=== PATIENT | male | born 1950 | race Caucasian/White ===

== ENCOUNTER 2020-11-12 06:16 | Inpatient (IN) ==
[~2020-11-12 06:16] MED LIST: Ringers Solution, Lactated 1,000 ML IVC SCH
[2020-11-12] MEDS ORDERED: Clindamycin 900 MG/50 ML 900 MG/50 ML IV.SOLN IVPB ONE (06:45)
[2020-11-12] MEDS ORDERED: Lidocaine HCL 4 ML Topical Solution (Laryng-O-Jet Kit Sterile Pak) TP ONE (06:51)
[2020-11-12] MEDS ORDERED: *HR* Vasopressin 20 UNIT/ML VIAL ONE (06:53)
[2020-11-12] MEDS ORDERED: Lidocaine Jelly 6ml 1 APPL/6 ML JEL.PF.APP ONE ×2 (06:53→07:42)
[2020-11-12] MEDS ORDERED: *HR* Propofol 200 MG/20 ML VIAL IVP ONE (06:56)
[2020-11-12] MEDS ORDERED: Lidocaine -MPF 2% 2 ML VIAL ONE (06:57)
[2020-11-12] MEDS ORDERED: *HR* Rocuronium Bromide 50 MG/5 ML VIAL ONE (06:57)
[2020-11-12] MEDS ORDERED: *HR* FentaNYL (PF) 100 MCG/2 ML VIAL ONE (06:57)
[2020-11-12] MEDS ORDERED: *HR* HYDROcodone/Acet 5/325 mg TABLET PO PRN (08:00)
[2020-11-12] MEDS ORDERED: Ondansetron 4 MG/2 ML VIAL IVP PRN ×2 (08:00→10:02)
[2020-11-12] MEDS ORDERED: Acetaminophen IV 1,000 MG/100 ML BAG IVPB PRN (08:00)
[2020-11-12] MEDS ORDERED: *HR* HYDROmorphone PF 0.5 MG/0.5 ML SYRINGE IVP PRN (08:00)
[2020-11-12] MEDS ORDERED: *HR* Labetalol 20 MG/4 ML SYRINGE IVP ONE (08:37)
[2020-11-12] MEDS ORDERED: Sugammadex Sodium 200 MG/2 ML VIAL IV ONE (08:38)
[2020-11-12] MEDS ORDERED: Ketorolac 30 MG/ML VIAL ONE (08:45)
[2020-11-12] MEDS ORDERED: *HR* HYDROMORPHONE 2 MG/ML VIAL ONE (08:47)
[2020-11-12] MEDS ORDERED: Naloxone 0.4 MG/ML INJ IVP PRN (10:02)
[2020-11-12] MEDS: 0.9 % Sodium Chloride 1,000 ML IVC SCH ×2 (10:26→23:16)
[2020-11-12] MEDS: Famotidine 20 MG TABLET PO SCH ×2 (10:26→20:51)
[2020-11-12] MEDS: *HR* HYDROcodone/Acet 5/325 mg TABLET PO PRN ×3 (10:26→20:51)
[2020-11-12] MEDS: Gabapentin 300 MG CAPSULE PO SCH ×3 (10:26→20:51)
[2020-11-12] MEDS: Sennosides/Docusate Sodium TABLET PO SCH ×2 (10:52→20:51)
[2020-11-12] MEDS: Ipratropium/Albuterol Neb 3 ML IH SCH ×3 (11:25→19:55)
[2020-11-12] MEDS: Ketorolac 15 MG/ML VIAL IVP SCH ×3 (11:52→23:15)
[2020-11-12] MEDS: *HR* Heparin 5,000 UNIT/ML VIAL SQ SCH ×2 (14:34→20:51)
[2020-11-12] MEDS: hydrALAZINE 10 MG TABLET PO PRN (17:12)
[2020-11-12] MEDS: traZODone 50 MG TABLET PO PRN (20:51)
[2020-11-13] MEDS: Ipratropium/Albuterol Neb 3 ML IH SCH ×6 (00:45→20:15)
[2020-11-13 00:52] LABS: Hemoglobin 12.9 g/dL (12.9-16.9); Mean Corpuscular HGB Conc 33.9 g/dL (31.6-35.5); Mean Corpuscular Volume 97.2 fL (83.0-100.0); Mean Platelet Volume 9.4 fL (9.4-12.4); Platelet Count 114 K/mcL (140-400); Red Blood Count 3.91 M/mcL (4.19-5.50); Red Cell Distribution Width 13.9 % (11.5-14.5); White Blood Count 7.3 K/mcL (4.3-11.1)
[2020-11-13 01:11] LABS: % Iron Saturation 14 % (20-55); BUN/Creatinine Ratio 12 (6-26); Blood Urea Nitrogen 12 mg/dL (8-23); Calcium 7.6 mg/dL (8.6-10.3); Carbon Dioxide 25 mEq/L (23-29); Chloride 100 mEq/L (98-107); Glucose 160 mg/dL (70-105); Iron 60 mcg/dL (65-175); Magnesium 0.8 mg/dL (1.6-2.6); Osmolality,Calculated 287 (280-300); Potassium 3.5 mEq/L (3.5-5.1); Sodium 137 mEq/L (136-145); Transferrin 299 mg/dL (203-362); eGFR For African Americans > 60 (> 60); eGFR For Non-African Americans > 60 (> 60)
[2020-11-13] MEDS: Ketorolac 15 MG/ML VIAL IVP SCH ×3 (05:10→17:28)
[2020-11-13] MEDS: *HR* Heparin 5,000 UNIT/ML VIAL SQ SCH ×3 (05:10→20:21)
[2020-11-13] MEDS: Aspirin Enteric Coated 81 MG Tablet PO SCH (07:51)
[2020-11-13] MEDS: Famotidine 20 MG TABLET PO SCH ×2 (07:51→20:21)
[2020-11-13] MEDS: Sennosides/Docusate Sodium TABLET PO SCH ×2 (07:52→20:21)
[2020-11-13] MEDS: DilTIAZem CD (24hr) 240 MG CAP.ER.24H PO SCH (07:52)
[2020-11-13] MEDS: allopurinoL 300 MG TABLET PO SCH (07:52)
[2020-11-13] MEDS: Gabapentin 300 MG CAPSULE PO SCH ×3 (07:52→20:21)
[2020-11-13] MEDS: *HR* HYDROcodone/Acet 5/325 mg TABLET PO PRN ×3 (07:57→17:28)
[2020-11-13] MEDS: hydrALAZINE 10 MG TABLET PO PRN (07:57)
[2020-11-13] MEDS: amLODIPine 5 MG TABLET PO SCH (09:23)
[2020-11-13] MEDS: Metoprolol XL (24 HR) Succ 25 MG TAB.ER.24H PO SCH (09:27)
[2020-11-13] MEDS: Patient Taking Own Medication 1 EACH PO SCH (09:28)
[2020-11-14] MEDS: Ipratropium/Albuterol Neb 3 ML IH SCH ×7 (00:14→23:55)
[2020-11-14 02:06] LABS: BUN/Creatinine Ratio 19 (6-26); Blood Urea Nitrogen 23 mg/dL (8-23); Calcium 7.6 mg/dL (8.6-10.3); Carbon Dioxide 26 mEq/L (23-29); Chloride 100 mEq/L (98-107); Glucose 147 mg/dL (70-105); Magnesium 2.3 mg/dL (1.6-2.6); Osmolality,Calculated 284 (280-300); Potassium 3.5 mEq/L (3.5-5.1); Sodium 134 mEq/L (136-145); eGFR For African Americans > 60 (> 60); eGFR For Non-African Americans > 60 (> 60)
[2020-11-14] MEDS: Ketorolac 15 MG/ML VIAL IVP SCH ×4 (06:53→16:51)
[2020-11-14] MEDS: *HR* HYDROcodone/Acet 5/325 mg TABLET PO PRN ×2 (06:54→21:29)
[2020-11-14] MEDS: *HR* Heparin 5,000 UNIT/ML VIAL SQ SCH ×3 (06:55→21:30)
[2020-11-14] MEDS: amLODIPine 5 MG TABLET PO SCH (09:17)
[2020-11-14] MEDS: allopurinoL 300 MG TABLET PO SCH (09:17)
[2020-11-14] MEDS: Sennosides/Docusate Sodium TABLET PO SCH ×2 (09:17→21:30)
[2020-11-14] MEDS: Famotidine 20 MG TABLET PO SCH ×2 (09:18→21:30)
[2020-11-14] MEDS: Gabapentin 300 MG CAPSULE PO SCH ×3 (09:18→21:30)
[2020-11-14] MEDS: Metoprolol XL (24 HR) Succ 25 MG TAB.ER.24H PO SCH (09:18)
[2020-11-14] MEDS: Aspirin Enteric Coated 81 MG Tablet PO SCH (09:18)
[2020-11-14] MEDS: DilTIAZem CD (24hr) 240 MG CAP.ER.24H PO SCH (09:19)
[2020-11-14] MEDS: Patient Taking Own Medication 1 EACH PO SCH (09:19)
[2020-11-14] MEDS: hydrALAZINE 10 MG TABLET PO PRN (09:21)
[2020-11-14] MEDS: traZODone 50 MG TABLET PO PRN (21:30)
[2020-11-15] MEDS: Ketorolac 15 MG/ML VIAL IVP SCH ×5 (00:22→23:14)
[2020-11-15] MEDS: Ipratropium/Albuterol Neb 3 ML IH SCH ×5 (04:25→20:02)
[2020-11-15] MEDS: *HR* Heparin 5,000 UNIT/ML VIAL SQ SCH ×3 (05:09→21:10)
[2020-11-15] MEDS: hydrALAZINE 10 MG TABLET PO PRN ×2 (05:09→23:15)
[2020-11-15] MEDS: allopurinoL 300 MG TABLET PO SCH (08:15)
[2020-11-15] MEDS: *HR* HYDROcodone/Acet 5/325 mg TABLET PO PRN ×2 (08:15→23:15)
[2020-11-15] MEDS: Gabapentin 300 MG CAPSULE PO SCH ×3 (08:15→20:30)
[2020-11-15] MEDS: Aspirin Enteric Coated 81 MG Tablet PO SCH (08:16)
[2020-11-15] MEDS: DilTIAZem CD (24hr) 240 MG CAP.ER.24H PO SCH (08:16)
[2020-11-15] MEDS: Metoprolol XL (24 HR) Succ 25 MG TAB.ER.24H PO SCH (08:16)
[2020-11-15] MEDS: amLODIPine 5 MG TABLET PO SCH (08:16)
[2020-11-15] MEDS: Famotidine 20 MG TABLET PO SCH ×2 (08:17→20:30)
[2020-11-15] MEDS: Sennosides/Docusate Sodium TABLET PO SCH ×2 (08:21→20:29)
[2020-11-15] MEDS ORDERED: Metoprolol XL (24 HR) Succ 25 MG TAB.ER.24H PO ONE ×2 (09:45)
[2020-11-15] MEDS: Patient Taking Own Medication 1 EACH PO SCH (12:00)
[2020-11-15] MEDS ORDERED: carvediloL 6.25 MG TABLET PO SCH (17:00)
[2020-11-15] MEDS: traZODone 50 MG TABLET PO PRN (20:31)
[2020-11-16] MEDS: Ipratropium/Albuterol Neb 3 ML IH SCH ×7 (00:09→23:18)
[2020-11-16] MEDS: Ketorolac 15 MG/ML VIAL IVP SCH ×4 (05:22→23:04)
[2020-11-16] MEDS: *HR* Heparin 5,000 UNIT/ML VIAL SQ SCH ×3 (05:22→21:07)
[2020-11-16] MEDS ORDERED: Metoprolol XL (24 HR) Succ 25 MG TAB.ER.24H PO SCH (09:00)
[2020-11-16] MEDS: Aspirin Enteric Coated 81 MG Tablet PO SCH (09:24)
[2020-11-16] MEDS: amLODIPine 5 MG TABLET PO SCH (09:24)
[2020-11-16] MEDS: Gabapentin 300 MG CAPSULE PO SCH ×3 (09:24→21:07)
[2020-11-16] MEDS: DilTIAZem CD (24hr) 240 MG CAP.ER.24H PO SCH (09:24)
[2020-11-16] MEDS: Famotidine 20 MG TABLET PO SCH ×2 (09:24→21:07)
[2020-11-16] MEDS: allopurinoL 300 MG TABLET PO SCH (09:25)
[2020-11-16] MEDS: Sennosides/Docusate Sodium TABLET PO SCH ×2 (09:25→21:07)
[2020-11-16] MEDS ORDERED: Furosemide 20 MG TABLET PO ONE (16:07)
[2020-11-16] MEDS: traZODone 50 MG TABLET PO PRN (21:07)
[2020-11-16] MEDS: *HR* HYDROcodone/Acet 5/325 mg TABLET PO PRN (23:04)
[2020-11-16] MEDS: hydrALAZINE 10 MG TABLET PO PRN (23:04)
[2020-11-17 01:38] LABS: Hematocrit 39.1 % (37.5-50.1); Hemoglobin 13.3 g/dL (12.9-16.9); Mean Corpuscular Hemoglobin 32.8 pg (28.0-33.3); Mean Corpuscular Volume 96.5 fL (83.0-100.0); Mean Platelet Volume 9.6 fL (9.4-12.4); Platelet Count 154 K/mcL (140-400); Red Blood Count 4.05 M/mcL (4.19-5.50); Red Cell Distribution Width 13.6 % (11.5-14.5); White Blood Count 8.3 K/mcL (4.3-11.1)
[2020-11-17 02:01] LABS: BUN/Creatinine Ratio 16 (6-26); Blood Urea Nitrogen 16 mg/dL (8-23); Calcium 9.7 mg/dL (8.6-10.3); Carbon Dioxide 25 mEq/L (23-29); Chloride 96 mEq/L (98-107); Glucose 141 mg/dL (70-105); Magnesium 2.1 mg/dL (1.6-2.6); Osmolality,Calculated 282 (280-300); Potassium 3.8 mEq/L (3.5-5.1); Sodium 134 mEq/L (136-145); eGFR For African Americans > 60 (> 60); eGFR For Non-African Americans > 60 (> 60)
[2020-11-17] MEDS: Ipratropium/Albuterol Neb 3 ML IH SCH ×3 (03:51→11:29)
[2020-11-17] MEDS: *HR* Heparin 5,000 UNIT/ML VIAL SQ SCH (05:01)
[2020-11-17] MEDS: Ketorolac 15 MG/ML VIAL IVP SCH (05:01)
[2020-11-17] MEDS ORDERED: Metoprolol XL (24 HR) Succ 50 MG TAB.ER.24H PO SCH ×2 (09:00)
[2020-11-17] MEDS: Sennosides/Docusate Sodium TABLET PO SCH (09:01)
[2020-11-17] MEDS: DilTIAZem CD (24hr) 240 MG CAP.ER.24H PO SCH (09:01)
[2020-11-17] MEDS: Gabapentin 300 MG CAPSULE PO SCH (09:01)
[2020-11-17] MEDS: Famotidine 20 MG TABLET PO SCH (09:01)
[2020-11-17] MEDS: amLODIPine 5 MG TABLET PO SCH (09:02)
[2020-11-17] MEDS: allopurinoL 300 MG TABLET PO SCH (09:02)
[2020-11-17] MEDS: Aspirin Enteric Coated 81 MG Tablet PO SCH (09:02)
[2020-11-17 10:14] VITALS: BP 172/109
[2020-11-17] MEDS: hydrALAZINE 10 MG TABLET PO PRN (10:52)
== END 2020-11-17 15:12 | disposition home or self-care (01) | DRG 163 ==
LOC: SAMDAY 06:16 → 2NNU 09:53
PROVIDERS: ADMIT Thoracic Surgery (Cardiothoracic Vascular Surgery); ATTEND Thoracic Surgery (Cardiothoracic Vascular Surgery)

== ENCOUNTER 2021-02-27 13:05 | Inpatient (IN) ==
[2021-02-27] MEDS ORDERED: Isovue-370 500 ML BOTTLE IVP ONE (13:28)
[2021-02-27 13:40] LABS: Hematocrit 38.8 % (37.5-50.1); Hemoglobin 13.3 g/dL (12.9-16.9); Mean Corpuscular HGB Conc 34.3 g/dL (31.6-35.5); Mean Corpuscular Hemoglobin 31.6 pg (28.0-33.3); Mean Corpuscular Volume 92.2 fL (83.0-100.0); Mean Platelet Volume 9.7 fL (9.4-12.4); Platelet Count 191 K/mcL (140-400); Red Blood Count 4.21 M/mcL (4.19-5.50); Red Cell Distribution Width 13.4 % (11.5-14.5); White Blood Count 7.5 K/mcL (4.3-11.1)
[2021-02-27 13:46] LABS: INR 1.3
[2021-02-27 13:49] LABS: Activated Partial Thrombo Time 31.7 Seconds (26.0-36.0)
[2021-02-27 14:08] LABS: Alanine Aminotransferase 19 Units/L (7-52); Albumin 4.2 g/dL (3.5-5.7); Albumin/Globulin Ratio 1.3 (1.1-2.2); Alkaline Phosphatase 133 Units/L (34-104); Aspartate Amino Transferase 20 Units/L (13-39); BUN/Creatinine Ratio 11 (6-26); Bilirubin,Direct 0.1 mg/dL (0.0-0.2); Bilirubin,Indirect 0.5 mg/dL (0.0-1.0); Bilirubin,Total 0.6 mg/dL (0.3-1.0); Blood Urea Nitrogen 14 mg/dL (8-23); Calcium 9.7 mg/dL (8.6-10.3); Carbon Dioxide 25 mEq/L (23-29); Chloride 102 mEq/L (98-107); Ethanol < 10 mg/dL (Less than 10); Globulin 3.3 g/dL (2.4-3.5); Glucose 153 mg/dL (70-105); Osmolality,Calculated 290 (280-300); Potassium 3.4 mEq/L (3.5-5.1); Sodium 138 mEq/L (136-145); Total Protein 7.5 g/dL (6.4-8.9); Troponin I < 0.03 ng/mL (< 0.04); eGFR For African Americans > 60 (> 60); eGFR For Non-African Americans 59 (> 60)
[2021-02-27 16:12] LABS: Amphetamine Screen,Urine Negative ng/mL (Cutoff=1000); Barbiturate Screen,Urine Negative ng/mL (Cutoff=200); Benzodiazepines Screen,Urine Negative ng/mL (Cutoff=200); Cannabinoid Screen,Urine Negative ng/mL (Cutoff = 50); Cocaine Screen,Urine Negative ng/mL (Cutoff= 300); Opiate Screen,Urine Negative ng/mL (Cutoff=300); Phencyclidine Screen,Urine Negative ng/mL (Cutoff=25)
[2021-02-27] MEDS ORDERED: Naloxone 0.4 MG/ML INJ IVP PRN (16:21)
[2021-02-27] MEDS ORDERED: Perflutren Lipid Microsphere 1.3 ML in 0.9 % Sodium Chloride 8.7 ML IVP PRN (16:42)
[2021-02-27] MEDS: Aspirin Enteric Coated 325 MG Tablet PO SCH (18:02)
[2021-02-27] MEDS: *HR* Heparin 5,000 UNIT/ML VIAL SQ SCH (18:02)
[2021-02-27] MEDS: Acetaminophen 325 MG TABLET PO PRN (19:29)
[2021-02-27] MEDS: Ondansetron 4 MG/2 ML VIAL IVP PRN (19:29)
[2021-02-27 19:49] LABS: Bilirubin,Urine Negative (Negative); Blood,Urine Small (Negative); Clarity,Urine Clear (Clear); Color,Urine Colorless (Yellow); Glucose,Urine (UA) Normal (Normal); Hyaline Casts,Urine Few per lpf (None Seen); Ketones,Urine Negative (Negative); Leukocyte Esterase,Urine Small (Negative); Nitrite,Urine Negative (Negative); PH,Urine 6.5 pH Units (5.0-8.0); Protein,Urine Negative (Neg-Trace); RBC,Urine 0-3 per hpf (0-3); Specific Gravity,Urine 1.023 (1.010-1.025); Urobilinogen,Urine Normal (Normal)
[2021-02-28 00:37] LABS: ABG Base Excess 1 mEq/L (-2 to 3); ABG HCO3 25 mEq/L (21-27); ABG Oxygen Saturation 93 % (95-98); ABG PCO2 37 mmHg (35-45); ABG PH 7.44 pH Units (7.32-7.45); ABG PO2 66 mmHg (85-104); ABG TCO2 27 mEq/L (20-26)
[2021-02-28] MEDS: Melatonin 3 MG TABLET PO PRN ×2 (02:15→21:37)
[2021-02-28 03:12] LABS: Basophils # 0.1 K/mcL (0.0-0.2); Basophils % 0.7 %; Eosinophils # 0.1 K/mcL (0.0-0.6); Hematocrit 38.1 % (37.5-50.1); Hemoglobin 13.2 g/dL (12.9-16.9); Immature Granulocytes % 0.4 % (0-4); Lymphocytes % 19.2 %; Mean Corpuscular HGB Conc 34.6 g/dL (31.6-35.5); Mean Corpuscular Hemoglobin 31.4 pg (28.0-33.3); Mean Corpuscular Volume 90.7 fL (83.0-100.0); Mean Platelet Volume 10.3 fL (9.4-12.4); Monocytes # 0.7 K/mcL (0.0-1.3); Monocytes % 6.1 %; Neutrophils # 7.7 K/mcL (1.6-8.9); Platelet Count 194 K/mcL (140-400); Red Cell Distribution Width 13.2 % (11.5-14.5); Segmented Neutrophils % 72.6 %; White Blood Count 10.6 K/mcL (4.3-11.1)
[2021-02-28 03:21] LABS: INR 1.2; Prothrombin Time 14.3 Seconds (9.4-12.1)
[2021-02-28 03:22] LABS: Estimated Average Glucose 120 mg/dl; Hemoglobin A1C 5.8 %
[2021-02-28 03:36] LABS: BUN/Creatinine Ratio 11 (6-26); Blood Urea Nitrogen 12 mg/dL (8-23); Carbon Dioxide 23 mEq/L (23-29); Chloride 101 mEq/L (98-107); Chol/HDL Ratio 4.3 (0-4.9); Cholesterol 115 mg/dL (< 200); Glucose 101 mg/dL (70-105); HDL Cholesterol 27 mg/dL (40-59); LDL Cholesterol,Calculated 51 mg/dL (< 100); Magnesium 1.1 mg/dL (1.6-2.6); Osmolality,Calculated 282 (280-300); Potassium 3.7 mEq/L (3.5-5.1); Sodium 136 mEq/L (136-145); Triglycerides 183 mg/dL (< 150); Troponin I < 0.03 ng/mL (< 0.04); eGFR For African Americans > 60 (> 60); eGFR For Non-African Americans > 60 (> 60)
[2021-02-28 03:58] LABS: Folate 11.9 ng/mL (3.0-16.0)
[2021-02-28] MEDS: *HR* Heparin 5,000 UNIT/ML VIAL SQ SCH ×2 (05:47→17:09)
[2021-02-28] MEDS: Ondansetron 4 MG/2 ML VIAL IVP PRN (05:47)
[2021-02-28] MEDS: Aspirin Enteric Coated 325 MG Tablet PO SCH (08:44)
[2021-02-28] MEDS ORDERED: levETIRAcetam 1,000 MG in 0.9 % Sodium Chloride 100 ML IVPB ONE (13:46)
[2021-02-28] MEDS ORDERED: Gadolinium Contrast Agent (WT Based) IV PRN (13:55)
[2021-02-28] MEDS: Acetaminophen 325 MG TABLET PO PRN (14:09)
[2021-02-28] MEDS ORDERED: traZODone 50 MG TABLET PO PRN (14:29)
[2021-02-28] MEDS ORDERED: *HR* Labetalol 20 MG/4 ML SYRINGE IVP PRN (16:35)
[2021-02-28] MEDS ORDERED: *HR* LORazepam 2 MG/ML VIAL IVP ONE (19:23)
[2021-02-28] MEDS ORDERED: *HR* LORazepam 2 MG/ML VIAL ONE (19:29)
[2021-03-01] MEDS: *HR* Heparin 5,000 UNIT/ML VIAL SQ SCH (05:40)
[2021-03-01 07:14] VITALS: O2SAT 92
[2021-03-01] MEDS: Aspirin Enteric Coated 325 MG Tablet PO SCH (08:21)
[2021-03-01] MEDS ORDERED: DilTIAZem CD (24hr) 240 MG CAP.ER.24H PO SCH (09:00)
[2021-03-01] MEDS ORDERED: Fluconazole 100 MG TABLET PO SCH (09:00)
[2021-03-01] MEDS ORDERED: allopurinoL 300 MG TABLET PO SCH (09:00)
[2021-03-01 11:28] VITALS: BP 162/94; PULSE 101; TEMP 97.4
[2021-03-01] MEDS ORDERED: levETIRAcetam 250 MG TABLET PO SCH (18:00)
== END 2021-03-01 12:53 | disposition home or self-care (01) | DRG 69 ==
LOC: EMEROOARM 13:05 → 3BNU 13:05 → SUATTDRO 15:55 → 3BNU 17:28
PROVIDERS: ADMIT Internal Medicine; ATTEND Internal Medicine

== ENCOUNTER 2022-02-28 09:54 | Inpatient (IN) ==
[2022-02-28] MEDS ORDERED: Iopamidol - 370 500 ML MLS IVP ONE (10:15)
[2022-02-28] MEDS ORDERED: 0.9 % Sodium Chloride 1,000 ML IV ONE ×2 (10:16→10:58)
[2022-02-28] MEDS ORDERED: Aspirin 81 MG TAB.CHEW PO STA (10:23)
[2022-02-28 10:29] LABS: Eosinophils % 0.7 %; Hemoglobin 15.6 g/dL (12.9-16.9); Immature Granulocytes % 0.4 % (0-4); Red Cell Distribution Width 13.7 % (11.5-14.5)
[2022-02-28 10:31] LABS: Basophils % 0.5 %; Hematocrit 46.1 % (37.5-50.1); Immature Platelets 5.1 % (1.1-6.1); Lymphocytes # 1.3 K/mcL (0.6-4.6); Lymphocytes % 23.6 %; Mean Corpuscular HGB Conc 33.8 g/dL (31.6-35.5); Mean Corpuscular Hemoglobin 29.3 pg (28.0-33.3); Mean Corpuscular Volume 86.5 fL (83.0-100.0); Mean Platelet Volume 9.8 fL (9.4-12.4); Monocytes # 0.7 K/mcL (0.0-1.3); Monocytes % 12.1 %; Neutrophils # 3.5 K/mcL (1.6-8.9); Platelet Count 123 K/mcL (140-400); Red Blood Count 5.33 M/mcL (4.19-5.50); Segmented Neutrophils % 62.7 %; White Blood Count 5.5 K/mcL (4.3-11.1)
[2022-02-28 10:37] LABS: INR 1.4; Prothrombin Time 15.1 Seconds (9.4-12.1)
[2022-02-28 10:50] LABS: Calcium 9.1 mg/dL (8.6-10.3); Magnesium 1.1 mg/dL (1.6-2.6); Potassium 3.1 mEq/L (3.5-5.1)
[2022-02-28 10:52] LABS: Troponin I 0.03 ng/mL (< 0.04)
[2022-02-28 11:03] LABS: Thyroid Stimulating Hormone 3.768 mcIU/mL (0.340-5.600)
[2022-02-28] MEDS ORDERED: cefTRIAXone 1,000 MG in 0.9 % Sodium Chloride Mini Bag 100 ML IVPB ONE (11:05)
[2022-02-28] MEDS ORDERED: Azithromycin 500 MG in 0.9 % Sodium Chloride 250 ML IVPB ONE (11:07)
[2022-02-28 12:06] LABS: Influenza A PCR Negative (Negative); Influenza B PCR Negative (Negative); Resp. Syncytial Virus PCR Negative (Negative)
[2022-02-28 12:07] LABS: SARS-CoV-2 by PCR (In House) Negative (Negative)
[2022-02-28] MEDS ORDERED: DilTIAZem 50 MG/50 ML IV.SOLN IVC SCH (13:00)
[2022-02-28 13:55] LABS: Bacteria,Urine Few per hpf (None-Few); Bilirubin,Urine Negative (Negative); Blood,Urine Small (Negative); Clarity,Urine Turbid (Clear); Color,Urine Light-Yellow (Yellow); Glucose,Urine (UA) Normal (Normal); Ketones,Urine 10 mg/dL (Negative); Leukocyte Esterase,Urine Large (Negative); Mucus,Urine Few per lpf (None-Few); Nitrite,Urine Negative (Negative); Protein,Urine Trace mg/dL (Neg-Trace); Specific Gravity,Urine 1.026 (1.010-1.025); Squamous Epithelial Cell,Urine Few per hpf (None-Few); Urobilinogen,Urine Normal (Normal); WBC,Urine TNTC per hpf (0-3)
[2022-02-28] MEDS ORDERED: Naloxone 0.4 MG/ML INJ IVP PRN (13:57)
[2022-02-28] MEDS ORDERED: Ondansetron 4 MG/2 ML VIAL IVP PRN (13:57)
[2022-02-28] MEDS ORDERED: Acetaminophen 325 MG TABLET PO PRN (13:57)
[2022-02-28] MEDS ORDERED: 0.9 % Sodium Chloride 1,000 ML IVC SCH (14:00)
[2022-02-28] MEDS ORDERED: *HR* Heparin 5,000 UNIT/ML VIAL IVP ONE (14:54)
[2022-02-28] MEDS ORDERED: *HR* Heparin 5,000 UNIT/ML VIAL IVP PRN ×2 (14:54)
[2022-02-28] MEDS ORDERED: Amiodarone Premix 150 MG/100 ML BAG IVPB ONE (14:58)
[2022-02-28] MEDS ORDERED: Amiodarone Premix 360 MG/200 ML BAG IVC ONE (14:58)
[2022-02-28] MEDS: Heparin 25,000UNIT/250ML 1/2NS 25,000 UNIT/250 ML IV.SOLN IVC SCH (15:53)
[2022-02-28] MEDS ORDERED: *HR* Heparin 5,000 UNIT/ML VIAL SQ SCH (18:00)
[2022-02-28] MEDS ORDERED: *HR* Metoprolol 5 MG/5 ML VIAL IVP PRN (22:17)
[2022-03-01] MEDS: Amiodarone Premix 360 MG/200 ML BAG IVC SCH ×3 (00:05→23:36)
[2022-03-01 05:34] LABS: Basophils # 0.1 K/mcL (0.0-0.2); Basophils % 1.2 %; Eosinophils # 0.1 K/mcL (0.0-0.6); Eosinophils % 3.3 %; Hematocrit 37.8 % (37.5-50.1); Immature Granulocytes % 0.2 % (0-4); Lymphocytes # 1.4 K/mcL (0.6-4.6); Lymphocytes % 33.4 %; Mean Corpuscular HGB Conc 34.4 g/dL (31.6-35.5); Mean Corpuscular Hemoglobin 29.6 pg (28.0-33.3); Mean Corpuscular Volume 86.1 fL (83.0-100.0); Mean Platelet Volume 10.1 fL (9.4-12.4); Monocytes # 0.5 K/mcL (0.0-1.3); Monocytes % 10.9 %; Neutrophils # 2.2 K/mcL (1.6-8.9); Platelet Count 122 K/mcL (140-400); Red Blood Count 4.39 M/mcL (4.19-5.50); Red Cell Distribution Width 13.5 % (11.5-14.5); White Blood Count 4.2 K/mcL (4.3-11.1)
[2022-03-01 05:54] LABS: BUN/Creatinine Ratio 16 (6-26); Blood Urea Nitrogen 18 mg/dL (8-23); Calcium 7.9 mg/dL (8.6-10.3); Carbon Dioxide 20 mEq/L (23-29); Chloride 104 mEq/L (98-107); Glucose 112 mg/dL (70-105); Magnesium 1.6 mg/dL (1.6-2.6); Osmolality,Calculated 281 (280-300); Potassium 3.3 mEq/L (3.5-5.1); Sodium 134 mEq/L (136-145); eGFR For African Americans > 60 (> 60); eGFR For Non-African Americans > 60 (> 60)
[2022-03-01 05:55] LABS: Troponin I < 0.03 ng/mL (< 0.04)
[2022-03-01] MEDS: allopurinoL 300 MG TABLET PO SCH (09:51)
[2022-03-01] MEDS: levETIRAcetam 250 MG TABLET PO SCH ×2 (09:54→18:19)
[2022-03-01] MEDS ORDERED: Ipratropium Neb 0.5 MG NEBULIZER IH PRN (09:57)
[2022-03-01] MEDS: Heparin 25,000UNIT/250ML 1/2NS 25,000 UNIT/250 ML IV.SOLN IVC SCH (10:22)
[2022-03-01] MEDS: Metoprolol XL (24 HR) Succ 25 MG TAB.ER.24H PO SCH (13:02)
[2022-03-01] MEDS: traZODone 50 MG TABLET PO PRN (21:53)
[2022-03-02 03:24] LABS: Basophils % 0.9 %
[2022-03-02 03:26] LABS: Eosinophils # 0.2 K/mcL (0.0-0.6); Eosinophils % 5.3 %; Hematocrit 39.7 % (37.5-50.1); Hemoglobin 13.6 g/dL (12.9-16.9); Immature Granulocytes % 0.2 % (0-4); Immature Platelets 6.5 % (1.1-6.1); Lymphocytes # 1.6 K/mcL (0.6-4.6); Lymphocytes % 36.2 %; Mean Corpuscular HGB Conc 34.3 g/dL (31.6-35.5); Mean Corpuscular Hemoglobin 29.8 pg (28.0-33.3); Mean Corpuscular Volume 86.9 fL (83.0-100.0); Mean Platelet Volume 11.8 fL (9.4-12.4); Monocytes # 0.4 K/mcL (0.0-1.3); Monocytes % 8.7 %; Neutrophils # 2.1 K/mcL (1.6-8.9); Platelet Count 112 K/mcL (140-400); Red Blood Count 4.57 M/mcL (4.19-5.50); Red Cell Distribution Width 13.9 % (11.5-14.5); Segmented Neutrophils % 48.7 %; White Blood Count 4.4 K/mcL (4.3-11.1)
[2022-03-02 03:43] LABS: Calcium 8.4 mg/dL (8.6-10.3); Magnesium 1.7 mg/dL (1.6-2.6); Phosphorous 2.6 mg/dL (2.7-4.5); Potassium 3.4 mEq/L (3.5-5.1)
[2022-03-02] MEDS: Heparin 25,000UNIT/250ML 1/2NS 25,000 UNIT/250 ML IV.SOLN IVC SCH ×2 (04:21→18:31)
[2022-03-02] MEDS: levETIRAcetam 250 MG TABLET PO SCH ×2 (05:59→17:46)
[2022-03-02] MEDS: allopurinoL 300 MG TABLET PO SCH (07:52)
[2022-03-02] MEDS: Metoprolol XL (24 HR) Succ 25 MG TAB.ER.24H PO SCH (07:52)
[2022-03-02] MEDS: Aspirin 81 MG TAB.CHEW PO SCH (07:52)
[2022-03-02] MEDS ORDERED: Regadenoson 0.4 MG/5 ML SYRINGE IVP ONE (08:48)
[2022-03-02] MEDS: traZODone 50 MG TABLET PO PRN (20:12)
[2022-03-03] MEDS: levETIRAcetam 250 MG TABLET PO SCH ×2 (05:38→18:22)
[2022-03-03] MEDS: allopurinoL 300 MG TABLET PO SCH (08:15)
[2022-03-03] MEDS: Aspirin 81 MG TAB.CHEW PO SCH (08:16)
[2022-03-03] MEDS ORDERED: *HR* Midazolam HCl 2 MG/2 ML VIAL ONE (10:47)
[2022-03-03] MEDS ORDERED: *HR* FentaNYL (PF) 100 MCG/2 ML VIAL ONE (10:47)
[2022-03-03 10:48] LABS: Basophils % 0.6 %; Eosinophils # 0.1 K/mcL (0.0-0.6); Eosinophils % 2.3 %; Hematocrit 38.5 % (37.5-50.1); Hemoglobin 13.1 g/dL (12.9-16.9); Immature Granulocytes % 0.3 % (0-4); Lymphocytes # 1.5 K/mcL (0.6-4.6); Lymphocytes % 24.7 %; Mean Corpuscular Hemoglobin 29.4 pg (28.0-33.3); Mean Corpuscular Volume 86.3 fL (83.0-100.0); Mean Platelet Volume 10.1 fL (9.4-12.4); Monocytes # 0.4 K/mcL (0.0-1.3); Platelet Count 207 K/mcL (140-400); Red Blood Count 4.46 M/mcL (4.19-5.50); Red Cell Distribution Width 13.5 % (11.5-14.5); Segmented Neutrophils % 65.1 %; White Blood Count 6.2 K/mcL (4.3-11.1)
[2022-03-03] MEDS ORDERED: 0.9 % Sodium Chloride 2,000 ML ONE (10:48)
[2022-03-03] MEDS ORDERED: Nitroglycerin 1,000 MCG/5 ML VIAL IV ONE (10:48)
[2022-03-03] MEDS ORDERED: *HR* Heparin 10,000 UNIT/10 ML VIAL ONE ×2 (10:48→11:16)
[2022-03-03] MEDS ORDERED: Heparin 1,000 UNITS/500 mL 500 ML ONE (10:48)
[2022-03-03] MEDS ORDERED: Iopamidol - 370 200 ML INFUS..BTL ONE (10:48)
[2022-03-03 11:16] LABS: Calcium 8.8 mg/dL (8.6-10.3); Magnesium 1.5 mg/dL (1.6-2.6); Phosphorous 2.4 mg/dL (2.7-4.5); Potassium 3.8 mEq/L (3.5-5.1)
[2022-03-03] MEDS ORDERED: *HR* Ticagrelor 90 MG TABLET ONE (11:25)
[2022-03-03] MEDS: 0.9 % Sodium Chloride 1,000 ML IVC SCH ×2 (12:56→20:22)
[2022-03-03] MEDS: Magnesium Oxide 400 MG TABLET PO SCH ×2 (15:41→19:57)
[2022-03-03] MEDS: Apixaban 5 MG TABLET PO SCH (19:57)
[2022-03-03] MEDS: traZODone 50 MG TABLET PO PRN (19:58)
[2022-03-04 05:27] VITALS: BP 166/84; PULSE 64; TEMP 97.7; O2SAT 90
[2022-03-04 05:28] LABS: Basophils # 0.1 K/mcL (0.0-0.2); Basophils % 0.7 %; Eosinophils # 0.2 K/mcL (0.0-0.6); Eosinophils % 2.7 %; Hematocrit 38.1 % (37.5-50.1); Hemoglobin 12.8 g/dL (12.9-16.9); Immature Granulocytes % 0.6 % (0-4); Lymphocytes # 2.1 K/mcL (0.6-4.6); Lymphocytes % 25.2 %; Mean Corpuscular HGB Conc 33.6 g/dL (31.6-35.5); Mean Corpuscular Hemoglobin 29.4 pg (28.0-33.3); Mean Corpuscular Volume 87.6 fL (83.0-100.0); Mean Platelet Volume 9.8 fL (9.4-12.4); Monocytes # 0.7 K/mcL (0.0-1.3); Monocytes % 8.6 %; Neutrophils # 5.2 K/mcL (1.6-8.9); Platelet Count 225 K/mcL (140-400); Red Blood Count 4.35 M/mcL (4.19-5.50); Red Cell Distribution Width 13.7 % (11.5-14.5); Segmented Neutrophils % 62.2 %; White Blood Count 8.3 K/mcL (4.3-11.1)
[2022-03-04] MEDS: levETIRAcetam 250 MG TABLET PO SCH (05:38)
[2022-03-04 05:59] LABS: Calcium 8.6 mg/dL (8.6-10.3); Potassium 3.7 mEq/L (3.5-5.1)
[2022-03-04] MEDS: Apixaban 5 MG TABLET PO SCH (09:07)
[2022-03-04] MEDS: allopurinoL 300 MG TABLET PO SCH (09:08)
[2022-03-04] MEDS: Aspirin 81 MG TAB.CHEW PO SCH (09:08)
[2022-03-04] MEDS: Magnesium Oxide 400 MG TABLET PO SCH (09:08)
[2022-03-04] MEDS: 0.9 % Sodium Chloride 1,000 ML IVC SCH (09:09)
[2022-03-04] MEDS ORDERED: Metoprolol XL (24 HR) Succ 25 MG TAB.ER.24H PO SCH (21:00)
== END 2022-03-04 10:54 | disposition home or self-care (01) | DRG 247 ==
LOC: 2NENU 09:54 → EMEROOARM 09:54 → 2NENU 14:51 → SUATTDRO 03-01 22:24
PROVIDERS: ADMIT Internal Medicine; ATTEND Internal Medicine

== ENCOUNTER 2022-04-07 11:11 | Observation (INO) ==
[2022-04-07 13:17] LABS: Basophils % 0.5 %; Hematocrit 41.6 % (37.5-50.1); Immature Granulocytes % 0.3 % (0-4); Lymphocytes # 1.1 K/mcL (0.6-4.6); Lymphocytes % 14.6 %; Mean Corpuscular HGB Conc 34.1 g/dL (31.6-35.5); Mean Corpuscular Hemoglobin 29.5 pg (28.0-33.3); Mean Corpuscular Volume 86.5 fL (83.0-100.0); Monocytes # 0.7 K/mcL (0.0-1.3); Monocytes % 9.5 %; Neutrophils # 5.6 K/mcL (1.6-8.9); Platelet Count 149 K/mcL (140-400); Red Blood Count 4.81 M/mcL (4.19-5.50); Red Cell Distribution Width 14.6 % (11.5-14.5); Segmented Neutrophils % 75.1 %; White Blood Count 7.4 K/mcL (4.3-11.1)
[2022-04-07 13:19] LABS: Hemoglobin 14.2 g/dL (12.9-16.9)
[2022-04-07 13:27] LABS: VBG HCO3 24 mEq/L (21-27); VBG PCO2 39 mmHg (41-51); VBG PH 7.39 pH Units (7.32-7.42); VBG PO2 43 mmHg (25-50)
[2022-04-07 13:37] LABS: Influenza A PCR Negative (Negative); Influenza B PCR Negative (Negative); Resp. Syncytial Virus PCR Negative (Negative)
[2022-04-07 13:39] LABS: SARS-CoV-2 by PCR (In House) Positive (Negative)
[2022-04-07 13:51] LABS: Calcium 9.2 mg/dL (8.6-10.3); Potassium 3.1 mEq/L (3.5-5.1); Troponin I 0.04 ng/mL (< 0.04)
[2022-04-07] MEDS ORDERED: 0.9 % Sodium Chloride 1,000 ML IVC ONE (14:25)
[2022-04-07] MEDS ORDERED: Iopamidol - 370 500 ML MLS IVP ONE (14:25)
[2022-04-07] MEDS ORDERED: Ipratropium/Albuterol Neb 3 ML IH ONE (16:15)
[2022-04-07] MEDS ORDERED: D5% in Water 1,000 ML IVC PRN (17:07)
[2022-04-07] MEDS ORDERED: Naloxone 0.4 MG/ML INJ IVP PRN (17:07)
[2022-04-07] MEDS ORDERED: Dextrose Gel 15 GM/37.5 ML TUBE PO PRN ×2 (17:07)
[2022-04-07] MEDS ORDERED: Melatonin 3 MG TABLET PO PRN (17:07)
[2022-04-07] MEDS ORDERED: *HR* Dextrose 50 % in Water (Syg) 50 ML SYRINGE IVP PRN (17:07)
[2022-04-07 17:08] LABS: Albumin 4.4 g/dL (3.5-5.7); Albumin/Globulin Ratio 1.2 (1.1-2.2); Bilirubin,Direct 0.2 mg/dL (0.0-0.2); Bilirubin,Indirect 0.5 mg/dL (0.0-1.0); Bilirubin,Total 0.7 mg/dL (0.3-1.0); Globulin 3.6 g/dL (2.4-3.5)
[2022-04-07 19:26] LABS: Estimated Average Glucose 123 mg/dl; Hemoglobin A1C 5.9 %
[2022-04-07] MEDS: Tiotropium 10 INH DOSE IH SCH (20:11)
[2022-04-07] MEDS: Metoprolol XL (24 HR) Succ 25 MG TAB.ER.24H PO SCH (20:14)
[2022-04-07] MEDS: Apixaban 5 MG TABLET PO SCH (20:14)
[2022-04-07] MEDS ORDERED: Insulin LISPRO 300 UNITS/3 ML VIAL SUBQ SCH (21:00)
[2022-04-07] MEDS: methylPREDNISolone 125 MG/2 ML VIAL IVP SCH ×2 (23:24→23:33)
[2022-04-08] MEDS: Insulin LISPRO 300 UNITS/3 ML VIAL SUBQ SCH ×2 (08:37→11:50)
[2022-04-08] MEDS ORDERED: DilTIAZem CD (24hr) 240 MG CAP.ER.24H PO SCH (09:00)
[2022-04-08] MEDS: Apixaban 5 MG TABLET PO SCH (09:00)
[2022-04-08] MEDS: Metoprolol XL (24 HR) Succ 25 MG TAB.ER.24H PO SCH (09:00)
[2022-04-08] MEDS ORDERED: predniSONE 20 MG TABLET PO SCH (09:00)
[2022-04-08] MEDS: Tiotropium 10 INH DOSE IH SCH (09:59)
[2022-04-08] MEDS ORDERED: levETIRAcetam 250 MG TABLET PO SCH (10:15)
[2022-04-08 10:35] LABS: Calcium 8.8 mg/dL (8.6-10.3); Magnesium 1.1 mg/dL (1.6-2.6); Phosphorous 3.6 mg/dL (2.7-4.5); Potassium 3.2 mEq/L (3.5-5.1)
[2022-04-08 11:23] LABS: Hematocrit 40.4 % (37.5-50.1); Hemoglobin 13.6 g/dL (12.9-16.9); Mean Corpuscular HGB Conc 33.7 g/dL (31.6-35.5); Mean Corpuscular Hemoglobin 28.8 pg (28.0-33.3); Mean Corpuscular Volume 85.4 fL (83.0-100.0); Platelet Count 173 K/mcL (140-400); Red Blood Count 4.73 M/mcL (4.19-5.50); Red Cell Distribution Width 14.4 % (11.5-14.5); White Blood Count 5.4 K/mcL (4.3-11.1)
[2022-04-08 11:24] VITALS: BP 148/82; PULSE 85; TEMP 97.8; O2SAT 93
== END 2022-04-08 16:25 | disposition home or self-care (01) ==
LOC: EMEROOARM 11:11 → 2ANU 11:11
PROVIDERS: ADMIT Internal Medicine; ATTEND Internal Medicine